=== PATIENT | male | born 1990 ===

== ENCOUNTER 2019-10-14 18:15 | Emergency (ER) | payer OTHER ==
[~2019-10-14] VITALS: Ht 170.2 cm; Wt 77.1 kg
[2019-10-14] MEDS ORDERED: OSEL75CA PO (20:51)
[2019-10-14] MEDS ORDERED: TUSNEL LIQUID178 ML PO (20:51)
[2019-10-14] MEDS ORDERED: DOLOGEN CAPLET1 EACH PO (20:51)
== END 2019-10-14 20:57 | disposition home or self-care (01) ==
LOC: ER 18:15
DX: J11.1 Influenza due to unidentified influenza virus with other respiratory manifestations (principal); B34.9 Viral infection, unspecified